=== PATIENT | female | born 1980 | race African-American/Black ===

== ENCOUNTER 2017-02-11 21:20 | Observation (INO) ==
--- NOTE | 2017-02-11 21:47 | Emergency Department Note ---
START Narrative - START START: 36-year-old female who presents with complaints of progressive swelling in her lower extremities. She is pending formal evaluation by manager agency. She admits to a heart condition but does not recall what condition she has. She has peripheral edema that is worsening with pain in the lower extremities. She has no history of DVT or pulmonary embolism. She is not currently on diuretics. Plan to obtain a basic metabolic panel to assess renal function, duplexes to rule out DVT, x-ray to evaluate for possible cardiomegaly versus congestive heart failure, proBNP to evaluate for heart failure, troponin and EKG. Plan to admit for further evaluation if abnormalities are identified.
[2017-02-11 22:11] LABS: Basophils % 0.6 %; Eosinophils # 0.1 K/mcL (0.0-0.6); Eosinophils % 2.1 %; Hemoglobin 12.6 g/dL (11.5-15.4); Immature Granulocytes % 0.2 % (0-4); Immature Platelets 3.6 % (1.1-6.1); Lymphocytes # 1.7 K/mcL (0.6-4.6); Lymphocytes % 37.2 %; Mean Corpuscular HGB Conc 31.5 g/dL (31.6-35.5); Mean Corpuscular Volume 85.7 fL (83.0-100.0); Mean Platelet Volume 10.2 fL (9.4-12.4); Monocytes # 0.3 K/mcL (0.0-1.3); Monocytes % 7.1 %; Neutrophils # 2.5 K/mcL (1.6-8.9); Platelet Count 254 K/mcL (140-400); Red Blood Count 4.67 M/mcL (3.82-4.97); Red Cell Distribution Width 13.9 % (11.5-14.5); Segmented Neutrophils % 52.8 %
[2017-02-11 22:26] LABS: Alanine Aminotransferase 94 Units/L (0-55); Albumin 3.3 g/dL (3.5-5.0); Albumin/Globulin Ratio 0.8 (1.1-2.2); Alkaline Phosphatase 150 Units/L (38-126); Aspartate Amino Transferase 60 Units/L (5-34); BUN/Creatinine Ratio 8 (6-26); Bilirubin,Total 0.4 mg/dL (0.2-1.2); Blood Urea Nitrogen 6 mg/dL (7-20); Calcium 9.6 mg/dL (8.6-10.8); Carbon Dioxide 24 mEq/L (19-29); Chloride 104 mEq/L (98-109); Globulin 4.3 g/dL (2.4-3.5); Glucose 102 mg/dL (70-99); Osmolality,Calculated 284 (280-300); Potassium 4.5 mEq/L (3.5-4.5); Sodium 138 mEq/L (136-145); Total Protein 7.6 g/dL (6.0-8.3); eGFR For African Americans > 60 (> 60); eGFR For Non-African Americans > 60 (> 60)
--- NOTE | 2017-02-11 22:59 | Emergency Department Note ---
Disposition Clinical Impression: New onset of congestive heart failure Disposition: Admitted As Inpatient Condition: Fair Referrals: NONE,PCP [Primary Care Provider] - Forms: ED Satisfaction Letter Time of Disposition: 01:15 Extremity Problem HPI - General Chief complaint: ED Extremity Problem,Nontraumatic Stated complaint: swelling in legs, has been seeing gerentological physiotherapist Time Seen by Provider: 02/11/17 21:24 Source: patient Limitations: no limitations - History of Present Illness HPI Narrative: I have assumed care of this patient from Dr. Mast. Please see Dr. Mast's documentation for any care performed prior to my arrival. Briefly, this is a 36 -year-old nontoxic appearing female presents for complaints of progressive swelling of the bilateral lower extremities. This swelling has been progressively worsening over the course of the past week. She is being followed by a gerentological physiotherapist and has currently been wearing a Holter monitor. She states she has a heart condition but cannot recall what condition it is. She has no history of DVT or pulmonary embolism. She denies any chest pain, pain with inspiration, nausea, vomiting, cough, hemoptysis, or fever. She does admit to getting short of breath with exertion as well as frequent episodes of orthopnea. She states that she is having to "pop myself up on pillows" to sleep at night. She is not currently on any diuretics. Pain Scale: 8 - Related Data Home Medications Medication Instructions Recorded Confirmed Buspirone HCl [Buspar] 10 mg PO BID 08/22/16 08/22/16 OxyCODONE/APAP 7.5/325 [Percocet 1 each PO Q6HR PRN 08/22/16 08/22/16 7.5/325 MG] hydroCHLOROthiazide 25 mg PO DAILY 08/22/16 08/22/16 [Hydrochlorothiazide] Previous Rx's Medication Instructions Recorded Naproxen [Naprosyn] 500 mg PO BID #20 tablet 01/26/17 Ibuprofen [Motrin] 600 mg PO Q6HR #20 tab 01/27/17 Allergies Allergy/AdvReac Type Severity Reaction Status Date / Time Iodinated Contrast- Oral and Allergy Difficulty Verified 01/27/17 16:07 IV Dye Breathing Penicillins Allergy Anaphylaxis Verified 01/27/17 16:06 tramadol Allergy Anaphylaxis Verified 01/27/17 16:06 All systems ED: reviewed and negative except as stated. Constitutional: Denies: fever, chills, weakness, weight change Eyes: Denies: eye pain, eye discharge, vision change ENT ED: Denies: ear pain, throat pain, dental pain, hearing loss, epistaxis, congestion, dysphagia Cardiovascular: Reports: as per HPI, dyspnea on exertion, orthopnea, edema ( Worsening bilateral lower extremity edema). Denies: chest pain, palpitations, syncope Respiratory: Denies: cough, dyspnea, wheezes, hemoptysis, stridor Gastrointestinal: Denies: abdominal pain, nausea, vomiting, diarrhea, constipation, hematemesis, melena, hematochezia Genitourinary: Denies: dysuria, frequency, hematuria, discharge Musculoskeletal: Denies: back pain, neck pain, arthralgia, myalgia Integumentary: Denies: rash, abrasion, lesions Neurological: Denies: headache, weakness, numbness, paresthesias, confusion, abnormal gait, vertigo Psychiatric: Denies: anxiety, depression, suicidal thoughts, homicidal thoughts , auditory hallucinations, visual hallucinations Endocrine: Denies: fatigue Hematological/Lymphatic: Denies: easy bleeding, easy bruising Allergic/Immunologic: Denies: facial swelling, urticaria Past Medical History - Past Medical History Attestation: Yes The following information was validated with the patient. Source: patient, nursing notes reviewed Medical history: Reports: asthma, migraine, other Surgical history: Reports: Psychiatric history: Reports: anxiety COUNTERPERSON history: Reports: endometriosis - Social History Smoking Status: Never smoker Smokeless Tobacco Status: No Alcohol use: Reports: none Drug use: Reports: none Physical Exam - General Limitations: no limitations General appearance: alert, in no apparent distress - Head Head exam: atraumatic, normocephalic, normal inspection - Eye Eye exam: Present: normal appearance, PERRL, EOMI. Absent: nystagmus - ENT ENT exam: mucous membranes moist - Neck Neck exam: Present: normal inspection, full ROM, trachea midline - Chest Chest inspection: Present: normal inspection, symmetric chest wall rise - Respiratory Respiratory exam: Present: normal lung sounds bilaterally. Absent: respiratory distress, wheezes, stridor, accessory muscle use, prolonged expiratory phase - Cardiovascular Cardiovascular exam: Present: regular rate, normal rhythm, normal heart sounds - Abdominal Exam Abdominal exam: Present: soft, Non-Tender, normal bowel sounds - Extremities Exam Extremities exam: Present: full ROM, tenderness (Tenderness to palpation of the bilateral lower extremities.), pedal edema (2-3+ pitting edema noted to the bilateral lower extremities.) - Expanded Lower Extremity Exam Neurovascular/Tendon exam: Present: normal capillary refill, normal 2-point discrimination. Absent: pulse deficit, motor deficit, sensory deficit, tendon deficit, extremity cold to touch - Neurological Exam Neurological exam: Present: alert, oriented X3 - Psychiatric Psychiatric exam: Present: normal affect, normal mood - Skin Skin exam: Present: warm, dry, intact, normal color Course Course Narrative: Venous duplexes of the bilateral lower extremities were performed and found to be negative for DVT or SVT. I have discussed this patient's case with Dr. Adams. Dr. Adams has had a [id number] evaluation with the patient and agrees with the above plan. 0113: I have spoken with Dr. Pulido of the hospitalist service. She has accepted the patient for admission to her service for further evaluation of suspected new onset congestive heart failure. Vital Signs Temperature 98.3 F 02/11/17 21:34 Pulse Rate 82 02/11/17 21:34 Respiratory Rate 16 02/11/17 21:34 Blood Pressure 149/90 02/11/17 21:34 O2 Sat by Pulse Oximetry 97 02/11/17 21:34 Temperature 98.3 F 02/11/17 21:34 Pulse Rate 82 02/11/17 21:34 Respiratory Rate 16 02/11/17 21:34 Blood Pressure 149/90 02/11/17 21:34 O2 Sat by Pulse Oximetry 97 02/11/17 21:34 Oxygen Delivery Oxygen Delivery Room Air Extremity Problem, Nontraumati - Medical Records Medical records reviewed: Yes I reviewed the patient's medical records. - Lab Data Lab results reviewed: Yes I reviewed the patient's lab results. Result diagrams: 02/11/17 22:04 02/11/17 22:04 Lab Results 02/11/17 02/11/17 02/11/17 Range/Units 22:04 22:04 22:04 WBC 4.7 (4.3-11.1) K/mcL RBC 4.67 (3.82-4.97) M/mcL Hgb 12.6 (11.5-15.4) g/dL Hct 40.0 (35.3-44.9) % MCV 85.7 (83.0-100.0) fL MCH 27.0 L (28.0-33.3) pg MCHC 31.5 L (31.6-35.5) g/dL RDW 13.9 (11.5-14.5) % Plt Count 254 (140-400) K/mcL MPV 10.2 (9.4-12.4) fL Immature Gran % 0.2 (0-4) % Seg Neutrophils % 52.8 % Lymphocytes % 37.2 % Monocytes % 7.1 % Eosinophils % 2.1 % Basophils % 0.6 % Neutrophils # 2.5 (1.6-8.9) K/mcL Lymphocytes # 1.7 (0.6-4.6) K/mcL Monocytes # 0.3 (0.0-1.3) K/mcL Eosinophils # 0.1 (0.0-0.6) K/mcL Basophils # 0.0 (0.0-0.2) K/mcL Immature Plt Fraction 3.6 (1.1-6.1) % Sodium 138 (136-145) mEq/L Potassium 4.5 (3.5-4.5) mEq/L Chloride 104 (98-109) mEq/L Carbon Dioxide 24 (19-29) mEq/L BUN 6 L (7-20) mg/dL Creatinine 0.77 (0.57-1.11) mg/dL Est GFR ( Amer) > 60 (> 60) Est GFR (Non-Af Amer) > 60 (> 60) BUN/Creatinine Ratio 8 (6-26) Glucose 102 H (70-99) mg/dL Calculated Osmolality 284 (280-300) Calcium 9.6 (8.6-10.8) mg/dL Total Bilirubin 0.4 (0.2-1.2) mg/dL AST 60 H (5-34) Units/L ALT 94 H (0-55) Units/L Alkaline Phosphatase 150 H (38-126) Units/L Troponin I 0.00 (0-0.03) ng/mL B-Natriuretic Peptide (0-100) pg/mL Serum Total Protein 7.6 (6.0-8.3) g/dL Albumin 3.3 L (3.5-5.0) g/dL Globulin 4.3 H (2.4-3.5) g/dL Albumin/Globulin Ratio 0.8 L (1.1-2.2) 02/11/17 Range/Units 22:04 WBC (4.3-11.1) K/mcL RBC (3.82-4.97) M/mcL Hgb (11.5-15.4) g/dL Hct (35.3-44.9) % MCV (83.0-100.0) fL MCH (28.0-33.3) pg MCHC (31.6-35.5) g/dL RDW (11.5-14.5) % Plt Count (140-400) K/mcL MPV (9.4-12.4) fL Immature Gran % (0-4) % Seg Neutrophils % % Lymphocytes % % Monocytes % % Eosinophils % % Basophils % % Neutrophils # (1.6-8.9) K/mcL Lymphocytes # (0.6-4.6) K/mcL Monocytes # (0.0-1.3) K/mcL Eosinophils # (0.0-0.6) K/mcL Basophils # (0.0-0.2) K/mcL Immature Plt Fraction (1.1-6.1) % Sodium (136-145) mEq/L Potassium (3.5-4.5) mEq/L Chloride (98-109) mEq/L Carbon Dioxide (19-29) mEq/L BUN (7-20) mg/dL Creatinine (0.57-1.11) mg/dL Est GFR ( Amer) (> 60) Est GFR (Non-Af Amer) (> 60) BUN/Creatinine Ratio (6-26) Glucose (70-99) mg/dL Calculated Osmolality (280-300) Calcium (8.6-10.8) mg/dL Total Bilirubin (0.2-1.2) mg/dL AST (5-34) Units/L ALT (0-55) Units/L Alkaline Phosphatase (38-126) Units/L Troponin I (0-0.03) ng/mL B-Natriuretic Peptide 117 H (0-100) pg/mL Serum Total Protein (6.0-8.3) g/dL Albumin (3.5-5.0) g/dL Globulin (2.4-3.5) g/dL Albumin/Globulin Ratio (1.1-2.2) - Radiology Data Radiology results reviewed: Yes I reviewed the patient's radiology results. Chest X-Ray 02/11/17 21:46 IMPRESSION: No acute abnormality detected. D/ / Evelio Yusuf MD / Evelio Yusuf MD Interpreting Provider: Evelio Yusuf MD - EKG Data EKG attestation: Yes I reviewed and interpreted this EKG. EKG results narrative: EKG reviewed by Dr. Adams as well. EKG shows a sinus rhythm at a rate of 60 bpm. CA interval 134, QRS duration 83, QT/QTc interval 413/414. No ectopy noted. No STEMI. Attestation Statement - Attestation Attestation: I, Flaco Adams DO have provided [id number] time during the care of this patient. Detailed review the presentation, symptoms, medical history were discussed and reviewed with the mid-level provider Tyrone Batres PA-C/IVIS. Medical intervention labs and imaging studies were reviewed in detail. See full documentation of physical exam and course of care in the mid-level provider's note. I agree with the determined course of care, medical interventio,n and disposition put forth by the mid-level provider. See below documentation for changes or alterations in documentation. Patient presents emergency room for evaluation of bilateral lower extremity swelling and exertional dyspnea. Seen by cardiology as an outpatient. Labs are abnormal with elevated BNP as well as pitting edema in lower extremities. Lungs otherwise clear heart is regular. Detailed documentation of physical exam medical decision making process medical intervention and consultation are documented in the mid-level provider's note. She is a well-appearing 36-year- old female with what appears to be early onset congestive heart failure. Has a significant family history of similar and multiple first-generation family members at this time. Patient will be admitted for definitive evaluation and management. Otherwise vital signs are stable throughout the course of care will contain a moderate to admission process is completed
[2017-02-11] MEDS ORDERED: Furosemide 40 MG/4 ML VIAL IVP ONE (23:06)
[2017-02-11] MEDS ORDERED: *HR* Morphine 2 MG/ML SYRINGE IVP ONE (23:43)
[2017-02-12] MEDS ORDERED: Ondansetron 4 MG/2 ML VIAL IVP ONE (00:12)
[2017-02-12] MEDS ORDERED: *HR* Morphine 2 MG/ML SYRINGE ONE (05:33)
[2017-02-12] MEDS ORDERED: *HR* HYDROcodone/Acet 5/325 mg TABLET PO PRN (08:45)
[2017-02-12] MEDS ORDERED: Naloxone 0.4 MG/ML INJ IVP PRN (08:45)
[2017-02-12] MEDS ORDERED: Acetaminophen 325 MG TABLET PO PRN (08:45)
[2017-02-12] MEDS ORDERED: Ondansetron 4 MG/2 ML VIAL IVP PRN (08:45)
[2017-02-12] MEDS ORDERED: Ipratropium/Albuterol Neb 3 ML IH PRN (09:23)
--- NOTE | 2017-02-12 09:27 | Internal Med History&Physical ---
Date of Encounter: 02/12/17 Time of Encounter: 09:00 Assessment and Plan (1) New onset of congestive heart failure Current visit: Yes Status: Acute Her symptoms seems to be more like CHF exacerbation will place the pt into tele for observation Not sure about Systolic vs Diastolic will obtain 2 D echo now cont gentle diuresis with Lasix 20 IV BID Strict I & O Card consulted on quality assurance monitor chassis serial troponin ASA 81mg daily If BP tolerates will start her Coreg, again will wait for 2 D Echo too (2) Chest discomfort Current visit: Yes Status: Acute Mostly due to CHF exacerbation on LILIBETH No acute changes on EKG..No ST elevation or depression will f/u on 2 D Echo (3) Bilateral leg edema Current visit: Yes Status: Acute ruled out DVT -- Venous doppler negative cont Lasix (4) Elevated LFTs Current visit: Yes Status: Acute Suspecting hepatic congestion Hepatitis panel ordered will trend on LFT's (5) DVT prophylaxis Current visit: Yes Status: Acute on Lovenox Internal Medicine - H&P: HPI Chief complaint: b/l le edema, sob Admitted From: Emergency Dept Plans for Post Hospital Care: Home History of present illness: Ms. Avila is a 36 year old female with no significant PMH has been having some SOB / SWEET, Palpitations, Orthopnea and PND from last 2-3 weeks. she did follow up with Crdiology Dr. Crane, who ordered 48hrs hlter monitor few days ago. Now she presented to our ER last night c/o progressively worsening swelling and pain in both legs, as well as worsening SWEET and Orthpnea. She does use 2 pillows to prop her self up. Also c/o intermittent chest discomfort, sub sternal region, squeezing type pain and non radiating. Past Med Surg Social Fam HX - Past Medical History Medical history: asthma, migraine, other Psychiatric history: anxiety - Past Surgical History Surgical History: - Social History Smoking Status: Light tobacco smoker (2 cigs / day) Smokeless Tobacco Status: No Alcohol use: none Drug use: none - Additional Family History Additional family history: Pt stated her grand parents have heart failure. Also Lupus and DM runs in her family Internal Medicine - H&P: Meds No Known Home Drugs 02/12/17 [History] 3 Allergy/AdvReac Type Severity Reaction Status Date / Time Iodinated Contrast- Oral and Allergy Difficulty Verified 01/27/17 16:07 IV Dye Breathing Penicillins Allergy Anaphylaxis Verified 01/27/17 16:06 tramadol Allergy Anaphylaxis Verified 01/27/17 16:06 All Systems PM: A 10-system review of systems was performed and is negative for pertinent findings except as documented above in the HPI. Review of systems: All the systems are reviewed everything is benign except the systems and symptoms I mentioned in the history of present illness - Constitutional Vitals: Temp Pulse Resp BP Pulse Ox 98.6 F 81 17 150/58 99 02/12/17 06:00 02/12/17 07:38 02/12/17 07:38 02/12/17 07:38 02/12/17 07:38 General appearance: Present: A&O X 3, no acute distress, answers questions appropriately - Head Head exam: Present: atraumatic, normal inspection - Respiratory Respiratory exam: Present: decreased breath sounds. Absent: rales, respiratory distress, rhonchi, wheezes - Cardiovascular Cardiovascular exam: Present: RRR, +S1, +S2. Absent: diastolic murmur, gallop, rubs, systolic murmur - GI/Abdominal GI/Abdominal exam: Present: normal bowel sounds, soft, no peritoneal signs. Absent: distended, tenderness - Extremities Exam Extremities exam: Present: pedal edema (2+), tenderness. Absent: calf tenderness - Neurological Exam Neurological exam: Present: alert, oriented X3 Internal Med - H&P Results - Labs CBC & Chem 7: 02/11/17 22:04 02/11/17 22:04
[2017-02-12] MEDS ORDERED: Nitroglycerin 0.4 MG TAB.SUBL SL PRN (09:38)
[2017-02-12 11:19] LABS: Hepatitis A Antibody IgM Nonreactive (Nonreactive); Hepatitis B Core IgM Nonreactive (Nonreactive); Hepatitis B Surface Antigen Nonreactive (Nonreactive)
[2017-02-12] MEDS: Famotidine 20 MG TABLET PO SCH ×2 (12:14→20:45)
[2017-02-12] MEDS: Furosemide 20 MG/2 ML VIAL IVP SCH ×2 (12:14→20:45)
[2017-02-12] MEDS: *HR* Morphine 2 MG/ML SYRINGE IVP PRN ×4 (12:14→23:03)
[2017-02-12] MEDS: Aspirin Enteric Coated 81 MG Tablet PO SCH (12:14)
[2017-02-12 14:48] LABS: Hepatitis C Virus Antibody Reactive (Nonreactive)
[2017-02-13 04:56] LABS: Alanine Aminotransferase 78 Units/L (0-55); Albumin 2.9 g/dL (3.5-5.0); Albumin/Globulin Ratio 0.8 (1.1-2.2); Alkaline Phosphatase 131 Units/L (38-126); Aspartate Amino Transferase 51 Units/L (5-34); BUN/Creatinine Ratio 14 (6-26); Bilirubin,Total 0.4 mg/dL (0.2-1.2); Blood Urea Nitrogen 11 mg/dL (7-20); Carbon Dioxide 29 mEq/L (19-29); Chloride 102 mEq/L (98-109); Chol/HDL Ratio 2.9 (0-4.9); Cholesterol 136 mg/dL (< 200); Globulin 3.8 g/dL (2.4-3.5); Glucose 83 mg/dL (70-99); HDL Cholesterol 47 mg/dL (40-59); LDL Cholesterol,Calculated 74 mg/dL (0-99); Magnesium 1.9 mg/dL (1.6-2.6); Osmolality,Calculated 285 (280-300); Potassium 3.9 mEq/L (3.5-4.5); Sodium 138 mEq/L (136-145); Total Protein 6.7 g/dL (6.0-8.3); Triglycerides 73 mg/dL (< 150); eGFR For African Americans > 60 (> 60); eGFR For Non-African Americans > 60 (> 60)
[2017-02-13] MEDS: *HR* Enoxaparin 40 MG/0.4 ML SYRINGE SQ SCH (05:15)
[2017-02-13] MEDS: *HR* Morphine 2 MG/ML SYRINGE IVP PRN ×4 (06:46→23:31)
--- NOTE | 2017-02-13 08:06 | Venous Imaging Report ---
LE Venous Duplex Patient Name:Hua Avila Order Number:[id number] Procedure Date:02/11/2017 Date:1980Age:36 yrs Gender:Female Location:[facility] Room #: Head Waiter/Waitress:Radha Heard RVT Referring MD:Diallo Mast DO food and beverage assistant:None Reading MD:Lyle You MD Secondary Indications: Risk Factors Yes/No None Impressions: Bilateral lower extremity: normal superficial and deep exam. Recommendations: Test completed on 02/11/2017 at 10:41:06 pm. Critical findings reported to Shanna MORGAN in person at 10:41:10 pm on 02/11/2017 by Radha Heard RVT. Findings Venous Duplex Results: Right: Venous imaging of the lower extremity reveals full patency and normal vessel compressibility of the right distal iliac, right common femoral, right superficial femoral, right popliteal, right posterior tibial, right peroneal, right great saphenous and right lesser saphenous. Doppler signals in the evaluated veins were normal. Left: Venous imaging of the lower extremity reveals full patency and normal vessel compressibility of the left distal iliac, left common femoral, left superficial femoral, left popliteal, left posterior tibial, left peroneal, left great saphenous and left lesser saphenous. Doppler signals in the evaluated veins were normal. Prior Study: No prior study available for comparison. Updated by Lyle You MD on 02/12/2017 3:39:05 PM electronically signed on 02/12/2017 3:39:23 PM with status of Final
--- NOTE | 2017-02-13 08:09 | Electrocardiograph Report ---
[address] [address] Test Date: 2017-02-11 Pat Name: Hua Avila Department: 104 Room: 2A45 Gender: F Housekeeping Coordinator: : 1980 Requested By: Diallo Mast Order Number: [id number] Reading MD: Edson Bryant MD Measurements Intervals [place] Rate: 60 P: 39 VA: 134 QRS: 26 QRSD: 83 T: -7 QT: 413 QTc: 414 Interpretive Statements SINUS RHYTHM Electronically Signed On 02-13-2017 6:32:10 EDT by Edson Bryant MD
--- NOTE | 2017-02-13 08:09 | Electrocardiograph Report ---
[place] [address] Test Date: 2017-02-12 Pat Name: Hua Avila Department: 103 Room: 2A45 Gender: F Public Relations Consultant: BP : 1980 Requested By: Pattie Pulido Order Number: [id number] Reading MD: Edson Bryant MD Measurements Intervals [place] Rate: 60 P: 45 SD: 135 QRS: 14 QRSD: 90 T: -5 QT: 423 QTc: 423 Interpretive Statements SINUS RHYTHM WITH SINUS ARRHYTHMIA Electronically Signed On 02-13-2017 6:37:39 EDT by Edson Bryant MD
--- NOTE | 2017-02-13 08:44 | Internal Med Progress Note ---
<Moreno Maya - Last Filed: 02/13/17 11:39> Date of Encounter: 02/13/17 Time of Encounter: 08:44 - Assessment and plan (1) Bilateral leg edema Current Visit: Yes Status: Acute Assessment and plan: - Patient reports b/l LE edema for about 1 week. No edema appreciated on physical exam this morning. -Likely etiology is lymphedema secondary to recent travel . Other Possible etiologies include new onset CHF, hepatic disease, renal disease - renal function normal, echo showed EF 60-65% with mild diastolic dysfunction - hepatitis c Ag was reactive. will pursue additional testing to confirm, pending results - DVT US negative for clot. - Encourage ambulation, elevation. (2) Shortness of breath Current Visit: Yes Status: Acute Assessment and plan: - Resolving. Currently tolerating room air without complaints - Possibly a sequela of new onset CHF. Admits to orthopnea and exertional component. - CXR in ED negative for acute process. BNP of 117 - Receiving lasix 20 mg IV BID. reports improvement of edema and SOB since admission - Will give supplemental O2 as necessary and continue Lasix. Continue to monitor (3) Elevated LFTs Current Visit: Yes Status: Acute Assessment and plan: - AST 51, ALT 78, Alk phos 131 - Possible reactive vs hepatitis C Ag reactive vs WYNNE - Will order additional testing to confirm or rule out - No known history of liver disease or family history of liver disease. (4) DVT prophylaxis Current Visit: Yes Status: Acute Assessment and plan: Lovanox - Time Spent With Patient 25 - 35 minutes - Subjective Interval history: Patient was seen and examined at bedside this morning. She states that she has been experiencing SOB and LE edema for about one week that was gradual and progressive. Improved today from admission. She admits that she recently returned from [place] last week for only a day and drove the length of the trip. She denies any previous cardiac, liver, kidney problems but state she was wearing a holter monitor due to bradycardia. She has been unable to get it read by because she began to experience her symptoms. She denies any symptoms of chest pain, f/c, abdominal pain, palpitations. - Constitutional Vitals: Temp Pulse Resp BP Pulse Ox 97.9 F 53 16 122/82 97 02/13/17 08:15 02/13/17 08:15 02/13/17 08:15 02/13/17 08:15 02/13/17 08:15 General appearance: Present: A&O X 3, no acute distress, answers questions appropriately Exam: Gen.: Vitals noted. No acute distress. AAOx3 HEENT: PERRL/EOMI, oropharynx clear, Normocephalic, atraumatic Neck: Supple. No adenopathy. Cardiac: RRR, no murmur, +S1/S2, occasional PVCs. Pulmonary: Very mild rales in LRL. no wheezes or rhonchi, equal chest expansion Abdomen: soft, nontender, BS noted, no guarding Back: Nontender throughout. MSK: ROM intact, no joint swelling noted Extremities: Tenderness to palpation of LE from tibia down, no BLE edema, nontender calf, no cyanosis or clubbing Neuro: A&Ox3, moves all extremities, no focal deficits Psych: Appropriate mood and behavior Internal Medicine: Result - Labs CBC & Chem 7: 02/11/17 22:04 02/13/17 03:59 Labs: BMP 02/13/17 03:59 Sodium 138 Potassium 3.9 Chloride 102 Carbon Dioxide 29 BUN 11 Creatinine 0.78 Glucose 83 Calcium 9.0 Cardiac Enzymes 02/12/17 02/12/17 Range/Units 09:43 15:53 Troponin I 0.00 0.00 (0-0.03) ng/mL Liver Function 02/13/17 Range/Units 03:59 Total Bilirubin 0.4 (0.2-1.2) mg/dL AST 51 H (5-34) Units/L ALT 78 H (0-55) Units/L Alkaline Phosphatase 131 H (38-126) Units/L Albumin 2.9 L (3.5-5.0) g/dL - Impressions Impressions Echocardiogram 02/12/17 08:48 Impressions: LVEF 60-65%. Normal LV chamber size, wall thickness and function. Mild left ventricular diastolic dysfunction. Normal right ventricular structure and function. No evidence of pulmonary hypertension. No significant valvular dysfunction. Left Ventricular Wall Motion: Rest Echo Findings All wall segments showed normal motion. Findings: Study Quality * Technically adequate exam. ECG Findings * Sinus bradycardia. Left Ventricle * LVEF 60-65%. * Normal LV chamber size, wall thickness and function. * Mild left ventricular diastolic dysfunction. Right Ventricle * Normal right ventricular structure and function. Left Atrium * Mildly dilated left atrium. Right Atrium * Normal right atrial size. Aortic Valve * Trileaflet aortic valve with normal function. * No aortic regurgitation. * No aortic stenosis. Mitral Valve * Normal mitral valve structure and function. * No mitral stenosis. * No mitral regurgitation. Tricuspid Valve * Normal tricuspid valve structure and function. * Trace tricuspid regurgitation. * No evidence of pulmonary hypertension. Pulmonic Valve * Normal pulmonic valve structure and function. * Normal pulmonic valve function. Aorta * Normally sized aortic root. Pericardium * There is a trivial pericardial effusion present. IVC * Normal IVC dimensions and inspiratory collapse. Pulmonary Artery * Normal visualized portions of the main pulmonary artery. Consult Discharge Plan - Plan Referrals: Dusty Luciano MD [Partnered Physician] - <Reji Lozano P - Last Filed: 02/13/17 18:18> Date of Encounter: 02/13/17 - Constitutional Vitals: Temp Pulse Resp BP Pulse Ox 98.2 F 61 14 113/77 94 02/13/17 16:03 02/13/17 16:03 02/13/17 16:03 02/13/17 16:03 02/13/17 16:03 Internal Medicine: Result - Labs CBC & Chem 7: 02/11/17 22:04 02/13/17 03:59 Labs: BMP 02/13/17 03:59 Sodium 138 Potassium 3.9 Chloride 102 Carbon Dioxide 29 BUN 11 Creatinine 0.78 Glucose 83 Calcium 9.0 Cardiac Enzymes 02/13/17 Range/Units 12:58 Troponin I 0.00 (0-0.03) ng/mL Liver Function 02/13/17 Range/Units 03:59 Total Bilirubin 0.4 (0.2-1.2) mg/dL AST 51 H (5-34) Units/L ALT 78 H (0-55) Units/L Alkaline Phosphatase 131 H (38-126) Units/L Albumin 2.9 L (3.5-5.0) g/dL - Impressions Impressions Echocardiogram 02/12/17 08:48 Impressions: LVEF 60-65%. Normal LV chamber size, wall thickness and function. Mild left ventricular diastolic dysfunction. Normal right ventricular structure and function. No evidence of pulmonary hypertension. No significant valvular dysfunction. Left Ventricular Wall Motion: Rest Echo Findings All wall segments showed normal motion. Findings: Study Quality * Technically adequate exam. ECG Findings * Sinus bradycardia. Left Ventricle * LVEF 60-65%. * Normal LV chamber size, wall thickness and function. * Mild left ventricular diastolic dysfunction. Right Ventricle * Normal right ventricular structure and function. Left Atrium * Mildly dilated left atrium. Right Atrium * Normal right atrial size. Aortic Valve * Trileaflet aortic valve with normal function. * No aortic regurgitation. * No aortic stenosis. Mitral Valve * Normal mitral valve structure and function. * No mitral stenosis. * No mitral regurgitation. Tricuspid Valve * Normal tricuspid valve structure and function. * Trace tricuspid regurgitation. * No evidence of pulmonary hypertension. Pulmonic Valve * Normal pulmonic valve structure and function. * Normal pulmonic valve function. Aorta * Normally sized aortic root. Pericardium * There is a trivial pericardial effusion present. IVC * Normal IVC dimensions and inspiratory collapse. Pulmonary Artery * Normal visualized portions of the main pulmonary artery. - Attending Attestation I examined this patient and my medical decision-making was reviewed with the Resident Physician. I agree with the documented findings, disposition and treatment plan as described except to the extent set forth below.
[2017-02-13] MEDS: Furosemide 20 MG/2 ML VIAL IVP SCH ×2 (09:05→16:55)
[2017-02-13] MEDS: Aspirin Enteric Coated 81 MG Tablet PO SCH (09:05)
[2017-02-13] MEDS: Famotidine 20 MG TABLET PO SCH ×2 (09:05→20:24)
[2017-02-14] MEDS: *HR* Morphine 2 MG/ML SYRINGE IVP PRN ×2 (03:54→09:08)
[2017-02-14 05:56] LABS: Hematocrit 36.9 % (35.3-44.9); Hemoglobin 12.1 g/dL (11.5-15.4); Mean Corpuscular HGB Conc 32.8 g/dL (31.6-35.5); Mean Corpuscular Hemoglobin 27.4 pg (28.0-33.3); Mean Corpuscular Volume 83.7 fL (83.0-100.0); Mean Platelet Volume 9.9 fL (9.4-12.4); Platelet Count 259 K/mcL (140-400); Red Blood Count 4.41 M/mcL (3.82-4.97); Red Cell Distribution Width 13.4 % (11.5-14.5)
[2017-02-14] MEDS ORDERED: Regadenoson 0.4 MG/5 ML SYRINGE IVP ONE (06:11)
[2017-02-14 06:15] LABS: Alanine Aminotransferase 77 Units/L (0-55); Albumin 3.2 g/dL (3.5-5.0); Albumin/Globulin Ratio 0.8 (1.1-2.2); Alkaline Phosphatase 141 Units/L (38-126); Aspartate Amino Transferase 44 Units/L (5-34); BUN/Creatinine Ratio 14 (6-26); Bilirubin,Total 0.5 mg/dL (0.2-1.2); Blood Urea Nitrogen 11 mg/dL (7-20); Calcium 9.4 mg/dL (8.6-10.8); Carbon Dioxide 28 mEq/L (19-29); Chloride 102 mEq/L (98-109); Globulin 4.2 g/dL (2.4-3.5); Glucose 94 mg/dL (70-99); Osmolality,Calculated 287 (280-300); Potassium 3.7 mEq/L (3.5-4.5); Sodium 139 mEq/L (136-145); Total Protein 7.4 g/dL (6.0-8.3); eGFR For African Americans > 60 (> 60); eGFR For Non-African Americans > 60 (> 60)
[2017-02-14] MEDS: *HR* Enoxaparin 40 MG/0.4 ML SYRINGE SQ SCH (09:04)
[2017-02-14] MEDS: Aspirin Enteric Coated 81 MG Tablet PO SCH (09:08)
[2017-02-14] MEDS: Famotidine 20 MG TABLET PO SCH (09:08)
[2017-02-14] MEDS: Furosemide 20 MG/2 ML VIAL IVP SCH (09:08)
[2017-02-14 09:30] VITALS: BP 116/86
--- NOTE | 2017-02-14 09:33 | Discharge Summary ---
<Moreno Maya - Last Filed: 02/14/17 10:14> Date of Encounter: 02/14/17 Time of Encounter: 09:31 - Discharge Diagnosis (1) Bilateral leg edema Priority: Primary Status: Acute (2) Shortness of breath Priority: Secondary Status: Resolved (3) Elevated LFTs Priority: Secondary Status: Acute (4) DVT prophylaxis Priority: Secondary Status: Acute - Discharge Medications Prescriptions: Furosemide [Lasix] 20 mg PO DAILY PRN #10 tablet PRN Reason: swelling Home Medications: Furosemide [Lasix] 20 mg PO DAILY PRN #10 tablet 02/14/17 [Rx] Allergies/Adverse Reactions: 3 Allergy/AdvReac Type Severity Reaction Status Date / Time Iodinated Contrast- Oral and Allergy Difficulty Verified 01/27/17 16:07 IV Dye Breathing Penicillins Allergy Anaphylaxis Verified 01/27/17 16:06 tramadol Allergy Anaphylaxis Verified 01/27/17 16:06 acetaminophen [From [place]] AdvReac Severe Anaphylaxis Verified 02/12/17 16:48 hydrocodone [From [place]] AdvReac Severe Anaphylaxis Verified 02/12/17 16:48 Procedures/tests Complete & Pending: Procedures Performed prior 72 hours Category Date Time Status NM dion perf SPECT multi [NM] Routine Exams 02/13/17 11:50 Taken ECG 12 lead ECG [ECG] Routine Y 02/12/17 09:55 Completed EV echocardiogram Routine Y 02/12/17 08:48 Completed SP exercise nuclear stress Routine Y 02/14/17 07:30 Completed Date of admission: 02/12/17 01:23 Primary care physician: PCP NONE Discharging clinician: Moreno Maya Anticipated date of discharge: 02/14/17 - Patient Status Disposition: Home, Self-Care Condition: Good Functional capacity at discharge: independent ambulation Overall status at discharge: patient is progressing back to baseline - Discharge Instructions Follow Up With: Dusty Luciano MD [Partnered Physician] - 02/20/17 1:00 pm Forms: Work/School Release Additional Instructions: Please follow up with your primary care provider regarding further management of your leg swelling as well as to follow up on your hepatitis C screening positive test results. - Diet and Activity Activity: increase activity as tolerated, resume usual activities as tolerated Diet: advance to your usual diet Hospital course: Ms. Avila is a 36 year old female presented to the emergency department with the complaint of progressive swelling of the bilateral lower extremities as well as shortness of breath on exertion for approximately one week. She states she is currently being seen by a cardiac rn for bradycardia and wearing a Holter monitor however she has not been able to have the monitor read as she presented to the emergency department due to her symptoms. She also admitted to orthopnea but denies any symptoms of chest pain, fevers, chills, cough. She denies any history of kidney, liver, heart disease. He does state that she recently took a vacation to [place] in which she drove, returning a couple days ago. In the emergency department vital signs were within normal limits. Lab results were significant for AST of 68, ALT of 94, alkaline phosphatase of 150, BNP of 117, troponin was negative 3. Chest x-ray showed no acute abnormality. Patient was admitted to medicine service for further evaluation and management of new onset lower extremity edema with concern for possible new onset congestive heart failure. During course of hospital stay, patient gradually improved and is tolerating room air without difficulty. Echocardiogram revealed an ejection fraction of 65 % with mild diastolic dysfunction. Nuclear stress test done on morning of discharge showed no ischemia. Her symptoms have improved and she is no longer noticing significant edema with use of Lasix. Her liver panel did come back positive for hepatitis C antigen, and confirmation hepatitis C quantity was ordered, pending results. Most likely cause of her edema and shortness of breath at this time is considered to be secondary to her long travel with lymphedema. No evidence of congestive heart failure at this time. Patient was instructed to follow-up with her primary care physician regarding further management of her medical conditions. She will be sent home with Lasix 20 mg when necessary for leg swelling. She was also instructed to follow-up with her primary care physician regarding the results of her hepatitis C labs. She was instructed to return the emergency department if her symptoms should worsen or return. Discharged home in stable medical condition. - Time Spent with Patient Total time spent providing and/or coordinating discharge services: 40 minutes - Constitutional Vitals: Temp Pulse Resp BP Pulse Ox 98.1 F 67 20 116/86 97 02/14/17 09:00 02/14/17 09:00 02/14/17 09:00 02/14/17 09:00 02/14/17 09:00 General appearance: Present: A&O X 3, no acute distress, answers questions appropriately Exam: Gen.: Vitals noted. No acute distress. AAOx3 HEENT: PERRL/EOMI, oropharynx clear, Normocephalic, atraumatic Neck: Supple. No adenopathy. Cardiac: RRR, no murmur, +S1/S2 Pulmonary: CTA bilaterally, no wheezes, rales or rhonchi, equal chest expansion Abdomen: soft, nontender, BS noted, no guarding Back: Nontender throughout. MSK: ROM intact, no joint swelling noted Extremities: Mild tenderness to palpation in bilateral ankles. no BLE edema, nontender calf, no cyanosis or clubbing Neuro: A&Ox3, moves all extremities, no focal deficits Psych: Appropriate mood and behavior <Reji Lozano P - Last Filed: 02/14/17 17:14> Date of Encounter: 02/14/17 Procedures/tests Complete & Pending: Procedures Performed prior 72 hours Category Date Time Status NM dion perf SPECT multi [NM] Routine Exams 02/13/17 11:50 Taken ECG 12 lead ECG [ECG] Routine Y 02/12/17 09:55 Completed EV echocardiogram Routine Y 02/12/17 08:48 Completed SP exercise nuclear stress Routine Y 02/14/17 07:30 Completed Date of admission: 02/12/17 01:23 Primary care physician: PCP NONE Hospital course: Ms. Avila is a 36 year old female - Time Spent with Patient Total time spent providing and/or coordinating discharge services: - Constitutional Vitals: Temp Pulse Resp BP Pulse Ox 98.1 F 67 20 116/86 97 02/14/17 09:00 02/14/17 09:00 02/14/17 09:00 02/14/17 09:00 02/14/17 09:00 - Attending Attestation I examined this patient and my medical decision-making was reviewed with the Resident Physician. I agree with the documented findings, disposition and treatment plan as described except to the extent set forth below.
--- NOTE | 2017-02-14 09:56 | Nuclear Medicine Stress Report ---
Exercise Nuclear Stress Name: Hua Avila Date of Study: 02/14/2017 Date: 1980 Ht: 67.0 in Medical Record#: [id number] Age: 36 Wt: 180.0 lb Gender: Female Order #: [id number] Location: [facility] IP Room: [facility] Supervising Provider: Angel Ma CNP Reading Physician: Cayetano Yoon DO, FACC, [facility] Ordering Physician: Pattie Pulido MD Stress Technologist: Rosy Berg, EMMA, CPFT Door Core Assembler: Alli Roberto Indications: Chest Pain Impression: Exercise ECG is negative for ischemia. The exercise capacity was good. No chest discomfort reported. Gated EF = 69%. Small sized, mild intensity, fixed basal anteroseptal defect consistent with breast attenuation artifact. Perfusion imaging was negative for ischemia or infarct. Stress Test Summary: Stress Test Type: Treadmill Protocol: Edson Baseline Information: Initial Heart Rate: 55 Blood Pressure: 114/82 Stress Information: Stress Time: 9 min 00 sec Test Terminated Due to (primary): Fatigue Maximum Blood Pressure: 142/70 Maximum Heart Rate: 163 Percent Maximum Heart Rate Achieved: 88 Double Product: 33946 METS Reached: 10.1 Symptoms: Fatigue Nuclear Summary: SPECT myocardial perfusion imaging using [id number] Sestamibi given intravenously was performed at rest and following cardiac stress testing. The resting images were obtained following initial dose of 11.3 mCi. Following stress an additional dose of 33.4 mCi was given at peak exercise or 30 seconds post regadenoson infusion. Medication Given: Time Medication Dose Units Route Findings: Stress Note * Resting ECG demonstrated normal sinus rhythm. * No baseline arrhythmias were noted. * Exercise ECG is negative for ischemia. * No arrhythmias were noted during stress. * The exercise capacity was good. * Patient had no chest pain during stress. * Normal hemodynamic responses to exercise. Study Quality * Study quality is good. Gated EF % * Gated EF = 69%. Left Ventricle * The left ventricle is not dilated.* LVEDV = 87 mL. * Normal wall motion. Anterior Perfusion Rest * The basal anteroseptal segment shows a mild reduction in perfusion. Anterior Perfusion Stress * The basal anteroseptal segment shows a mild reduction in perfusion. TID * No evidence of transient ischemic dilatation. TID ratio = 1.06. Lung Uptake * There is no evidence of increase lung uptake. Updated by Cayetano Yoon DO, DARRELL, LION, QUINCY on 02/14/2017 9:49:29 AM electronically signed on 02/14/2017 9:50:26 AM with status of Final
[2017-02-17 20:02] LABS: HCV Quant Interpretation DETECTED (Not Detected)
[2017-02-21 07:41] LABS: HCV Genotype by Sequencing 2B
== END 2017-02-14 11:15 | disposition home or self-care (01) ==
LOC: 2NENU 21:20 → EMEROO 21:20 → 2NENU 02-12 06:48 → 2ANU 02-12 10:46
PROVIDERS: ADMIT Family Medicine; ATTEND Internal Medicine

== ENCOUNTER 2019-11-12 10:51 | Inpatient (IN) ==
[2019-11-12] MEDS ORDERED: Metoclopramide 10 MG/2 ML VIAL IVP PRN ×2 (10:52→18:36)
[2019-11-12] MEDS ORDERED: Naloxone 0.4 MG/ML INJ IVP PRN ×2 (10:52→15:19)
[2019-11-12] MEDS ORDERED: Famotidine 20 MG/2 ML VIAL IVP PRN (10:52)
[2019-11-12] MEDS ORDERED: Clindamycin 900 MG/50 ML 900 MG/50 ML IV.SOLN IVPB ONE ×2 (10:55→14:02)
[2019-11-12] MEDS ORDERED: Gentamicin 130 MG in 0.9 % Sodium Chloride 100 ML IVPB ONE (11:25)
[2019-11-12] MEDS: Ringers Solution, Lactated 1,000 ML IVC SCH (11:52)
[2019-11-12] MEDS ORDERED: *HR* Phenylephrine 10 MG/ML VIAL ONE (11:57)
[2019-11-12] MEDS ORDERED: *HR* Morphine Sulfate/PF 10 MG/10 ML AMPUL ONE (11:57)
[2019-11-12] MEDS ORDERED: Ringers Solution, Lactated 1,000 ML ONE (11:57)
[2019-11-12] MEDS ORDERED: *HR* FentaNYL (PF) 100 MCG/2 ML VIAL ONE (11:57)
[2019-11-12] MEDS ORDERED: *HR* Oxytocin 10 UNIT/ML VIAL IM ONE ×2 (11:57→15:14)
[2019-11-12 12:00] LABS: Amphetamine Screen,Urine Negative ng/mL (Cutoff=1000); Barbiturate Screen,Urine Negative ng/mL (Cutoff=200); Benzodiazepines Screen,Urine Negative ng/mL (Cutoff=200); Cannabinoid Screen,Urine Negative ng/mL (Cutoff = 50); Cocaine Screen,Urine Negative ng/mL (Cutoff= 300); Opiate Screen,Urine Negative ng/mL (Cutoff=300); Phencyclidine Screen,Urine Negative ng/mL (Cutoff=25)
[2019-11-12] MEDS ORDERED: Lidocaine -MPF 2% 5 ML VIAL ONE (12:08)
[2019-11-12 13:21] LABS: Basophils % 0.5 %; Eosinophils # 0.1 K/mcL (0.0-0.6); Eosinophils % 1.1 %; Hematocrit 34.7 % (35.3-44.9); Hemoglobin 10.9 g/dL (11.5-15.4); Immature Granulocytes % 0.9 % (0-4); Lymphocytes # 1.8 K/mcL (0.6-4.6); Lymphocytes % 27.5 %; Mean Corpuscular HGB Conc 31.4 g/dL (31.6-35.5); Mean Corpuscular Hemoglobin 26.6 pg (28.0-33.3); Mean Corpuscular Volume 84.6 fL (83.0-100.0); Mean Platelet Volume 11.7 fL (9.4-12.4); Monocytes # 0.5 K/mcL (0.0-1.3); Monocytes % 8.3 %; Platelet Count 172 K/mcL (140-400); Red Cell Distribution Width 14.6 % (11.5-14.5); Segmented Neutrophils % 61.7 %; White Blood Count 6.5 K/mcL (4.3-11.1)
[2019-11-12] MEDS ORDERED: EPHEDrine 50 MG/ML VIAL ONE (14:58)
[2019-11-12] MEDS ORDERED: *HR* HYDROmorphone PF 0.5 MG/0.5 ML SYRINGE IVP PRN (15:19)
[2019-11-12] MEDS ORDERED: *HR* Meperidine 25 MG/ML SYRINGE IVP PRN (15:19)
[2019-11-12] MEDS ORDERED: Ondansetron 4 MG/2 ML VIAL IVP PRN ×2 (15:19→18:36)
[2019-11-12] MEDS ORDERED: *HR* Labetalol 20 MG/4 ML SYRINGE IVP PRN (15:19)
[2019-11-12] MEDS ORDERED: Ketorolac 30 MG/ML VIAL ONE (15:58)
[2019-11-12 16:26] LABS: Amphetamine Screen,Urine Negative ng/mL (Cutoff=1000); Barbiturate Screen,Urine Negative ng/mL (Cutoff=200); Benzodiazepines Screen,Urine Negative ng/mL (Cutoff=200); Cannabinoid Screen,Urine Negative ng/mL (Cutoff = 50); Cocaine Screen,Urine Negative ng/mL (Cutoff= 300); Opiate Screen,Urine Negative ng/mL (Cutoff=300); Phencyclidine Screen,Urine Negative ng/mL (Cutoff=25)
[2019-11-12] MEDS ORDERED: *HR* OxyCODONE Immed Rel 5 MG TABLET PO PRN ×2 (16:27→23:51)
[2019-11-12 16:46] LABS: Creatinine,Urine 19 mg/dL
[2019-11-12] MEDS ORDERED: Simethicone 80 MG TAB.CHEW PO PRN (18:36)
[2019-11-12] MEDS ORDERED: Sennosides 8.6 MG TABLET PO PRN (18:36)
[2019-11-12] MEDS ORDERED: Ketorolac 15 MG/ML VIAL IVP SCH (18:36)
[2019-11-12] MEDS ORDERED: Oxytocin 20 units/ LR 1000 mL 20 UNIT/1,000 ML BAG IVC SCH (18:36)
[2019-11-12] MEDS ORDERED: *HR* Buprenorphine HCl 8 MG TAB.SUBL SL SCH (21:00)
[2019-11-12] MEDS ORDERED: *HR* LORazepam 1 MG TABLET PO ONE (23:52)
[2019-11-13] MEDS: Ketorolac 30 MG/ML VIAL IM SCH ×2 (00:03→05:54)
[2019-11-13 05:28] LABS: Basophils % 0.1 %; Hematocrit 30.7 % (35.3-44.9); Hemoglobin 9.6 g/dL (11.5-15.4); Immature Granulocytes % 0.7 % (0-4); Lymphocytes # 1.2 K/mcL (0.6-4.6); Lymphocytes % 14.8 %; Mean Corpuscular HGB Conc 31.3 g/dL (31.6-35.5); Mean Corpuscular Hemoglobin 26.4 pg (28.0-33.3); Mean Corpuscular Volume 84.3 fL (83.0-100.0); Mean Platelet Volume 12.4 fL (9.4-12.4); Monocytes # 0.6 K/mcL (0.0-1.3); Monocytes % 7.3 %; Neutrophils # 6.4 K/mcL (1.6-8.9); Platelet Count 162 K/mcL (140-400); Red Blood Count 3.64 M/mcL (3.82-4.97); Red Cell Distribution Width 14.6 % (11.5-14.5); Segmented Neutrophils % 77.1 %; White Blood Count 8.4 K/mcL (4.3-11.1)
[2019-11-13] MEDS: *HR* Buprenorphine HCl 2 MG SUBLINGUAL TABLET SL SCH ×3 (09:37→21:21)
[2019-11-13] MEDS: Prenatal Vit/FA 1 EACH TABLET PO SCH (09:37)
[2019-11-13 10:01] LABS: Basophils % 0.3 %; Eosinophils % 0.1 %; Hematocrit 28.3 % (35.3-44.9); Hemoglobin 9.1 g/dL (11.5-15.4); Immature Granulocytes % 0.5 % (0-4); Lymphocytes # 1.5 K/mcL (0.6-4.6); Lymphocytes % 18.9 %; Mean Corpuscular HGB Conc 32.2 g/dL (31.6-35.5); Mean Corpuscular Hemoglobin 27.5 pg (28.0-33.3); Mean Corpuscular Volume 85.5 fL (83.0-100.0); Mean Platelet Volume 11.4 fL (9.4-12.4); Monocytes # 0.6 K/mcL (0.0-1.3); Monocytes % 7.8 %; Neutrophils # 5.8 K/mcL (1.6-8.9); Platelet Count 154 K/mcL (140-400); Red Blood Count 3.31 M/mcL (3.82-4.97); Red Cell Distribution Width 14.7 % (11.5-14.5); Segmented Neutrophils % 72.4 %
[2019-11-13 10:11] LABS: Alanine Aminotransferase 9 Units/L (7-52); Aspartate Amino Transferase 18 Units/L (13-39); BUN/Creatinine Ratio 8 (6-26); Blood Urea Nitrogen 6 mg/dL (6-20); Lactate Dehydrogenase 176 Units/L (140-271); eGFR For African Americans > 60 (> 60); eGFR For Non-African Americans > 60 (> 60)
[2019-11-13] MEDS: Ketorolac 30 MG/ML VIAL IVP SCH ×2 (11:52→17:51)
[2019-11-13] MEDS ORDERED: Ringers Solution, Lactated 1,000 ML ONE (15:56)
[2019-11-13] MEDS: Ringers Solution, Lactated 1,000 ML IVC SCH (16:25)
[2019-11-14] MEDS: Ibuprofen 400 MG TABLET PO PRN ×3 (00:07→23:08)
[2019-11-14] MEDS: *HR* Buprenorphine HCl 2 MG SUBLINGUAL TABLET SL SCH ×2 (08:17→21:22)
[2019-11-14] MEDS: Prenatal Vit/FA 1 EACH TABLET PO SCH (08:17)
[2019-11-15 07:50] VITALS: BP 115/79
[2019-11-15] MEDS: Prenatal Vit/FA 1 EACH TABLET PO SCH (09:23)
[2019-11-15] MEDS: *HR* Buprenorphine HCl 2 MG SUBLINGUAL TABLET SL SCH (09:23)
== END 2019-11-15 14:47 | disposition home or self-care (01) | DRG 540 ==
LOC: 1NENULAB 10:51 → 1NENUOBS 18:35
PROVIDERS: ADMIT Obstetrics & Gynecology; ATTEND Obstetrics & Gynecology